=== PATIENT | female | born 1960 | race Caucasian/White ===

== ENCOUNTER → 2024-05-14 14:06 | Outpatient (REF) | payer BC, MEDICARE, SELFPAY | LOC: HWRCS 14:06 | PROVIDERS: ATTENDING PHYSICIAN Internal Medicine Cardiovascular Disease; FAMILY PHYSICIAN Family Medicine | DX: I48.3 Typical atrial flutter (principal) | CPT/HCPCS: 93306 ==

== ENCOUNTER → 2024-09-16 14:16 | Outpatient (REF) | payer BC, SELFPAY | LOC: RCS 14:16 | PROVIDERS: ATTENDING PHYSICIAN Internal Medicine Cardiovascular Disease; FAMILY PHYSICIAN Family Medicine | DX: I27.20 Pulmonary hypertension, unspecified (principal) | CPT/HCPCS: 93306; 93356 ==

== ENCOUNTER 2024-10-09 07:21 | Day surgery (SDC) | payer BC, SELFPAY ==
[2024-10-09] VITALS (10 sets, daily range): BP systolic 100–162; BP diastolic 60–82; BMI 35.6
[2024-10-09 08:12] LABS: Hematocrit 42.8 % (37.0-47.0); Hemoglobin 14.5 g/dL (12.0-16.0); Mean Corp Hgb Conc. 33.9 g/dL (33.0-37.0); Mean Corpuscular Hgb 30.1 pg (27.0-31.0); Mean Platelet Volume 10.5 fL (7.4-10.4); Platelet Count 187 10^3/uL (130-400); Red Blood Cell Count 4.81 10^6/uL (4.20-5.40); Red Cell Dist. Width 13.5 % (11.5-14.5); White Blood Cell Count 6.5 10^3/uL (4.8-10.8)
[2024-10-09 08:49] LABS: Blood Urea Nitrogen 16 mg/dl (7-17); Calcium 9.3 mg/dl (8.4-10.2); Carbon Dioxide 25 mmol/L (22-30); Chloride 108 mmol/L (98-107); Estimated Creatinine Clearance 110 ml/min; Glucose 109 mg/dl (70-99); Potassium 3.9 mmol/L (3.5-5.1); Sodium 142 mmol/L (135-145); eGFR > 60.00
--- NOTE | 2024-10-09 11:43 | ITS.CL.CATH ---
Addendum entered and electronically signed by Ricardo Jacinto MD 10/09/24 14:44:
Director Of Logistics - Catheterization
Cardiac Catheterization
Procedure Report:
RIGHT HEART CATHETERIZATION
Date of Procedure: October 09, 2024
Referring: Dr. Alli Holt
INDICATION: Scleroderma
Hemodynamics (mmHg):
RA (m) : 14
RV (s/d,m) : 08/05, 16
PA (s/d, m) : /, 38
PCWP (m) : 20
Ao: 143/69, 99
Cardiac Output : 3.8 L/min
Cardiac Index : 1.8 L/min/m-2
Systemic vascular resistance: 22.4 Wood units or 1790 [id number]-cs(-5)
Pulmonary vascular resistance: 4.7 Wood units or 379 sdkzh-[id number]-pi(-5)
SEDATION: 55 minutes of procedural sedation was utilized. An independent medical photographer was present to assist with and help manage the patient's level of consciousness and physiologic status
RADIATION SUMMARY: Fluoro Time (min): 0.7, Dose (mGy): 20.1, DAP (Gy.cm2) : 2.5
CONCLUSION:
1. Combined pre and postcapillary pulmonary hypertension with a mean PA pressure of 38 mmHg, pulmonary capillary wedge pressure of 20 mmHg, and PVR of 4.7 Wood units.
Copy to: Dr. Alli Holt
Original Note:
Director Of Logistics - Catheterization
Cardiac Catheterization
Procedure Report:
RIGHT HEART CATHETERIZATION
Date of Procedure: October 09, 2024
Referring: Dr. Alli Holt
INDICATION: Scleroderma
Hemodynamics (mmHg):
RA (m) : 14
RV (s/d,m) : 08/05, 16
PA (s/d, m) : 56/29, 38
PCWP (m) : 20
Ao: 143/69, 99
Cardiac Output : 3.8 L/min
Cardiac Index : 1.8 L/min/m-2
Systemic vascular resistance: 22.4 Wood units or 1790 vwgir-lbc-cz(-5)
Pulmonary vascular resistance: 4.7 Wood units or 379 bzrjv-[id number]-yi(-5)
SEDATION: [ ] minutes of procedural sedation was utilized. An independent medical photographer was present to assist with and help manage the patient's level of consciousness and physiologic status
RADIATION SUMMARY: Fluoro Time (min): [ ], Dose (mGy): [ ], DAP (Gy.cm2) : [ ]
CONCLUSION:
[ ]
Copy to: [ ]
== END 2024-10-09 14:00 | disposition home or self-care (01) ==
LOC: CATH 07:21
PROVIDERS: ATTENDING PHYSICIAN Internal Medicine Interventional Cardiology; FAMILY PHYSICIAN Family Medicine; OTHER PHYSICIAN Internal Medicine Cardiovascular Disease
DX: M34.9 Systemic sclerosis, unspecified (principal); I27.20 Pulmonary hypertension, unspecified; I48.92 Unspecified atrial flutter; I10 Essential (primary) hypertension; G47.33 Obstructive sleep apnea (adult) (pediatric); Z85.42 Personal history of malignant neoplasm of other parts of uterus; Z79.01 Long term (current) use of anticoagulants
CPT/HCPCS: 99152; 99153; C1894; 80048; 85027; 93451

== ENCOUNTER → 2024-12-23 07:36 | Outpatient (REF) | payer MEDICARE, OTHER, SELFPAY | LOC: RCS 07:36 | PROVIDERS: ATTENDING PHYSICIAN Internal Medicine Cardiovascular Disease; FAMILY PHYSICIAN Family Medicine | DX: I48.3 Typical atrial flutter (principal); I27.20 Pulmonary hypertension, unspecified | CPT/HCPCS: 93306 ==

== ENCOUNTER → 2025-02-01 13:36 | Outpatient (REF) | payer MEDICARE, OTHER, SELFPAY | LOC: RCS 13:36 | PROVIDERS: ATTENDING PHYSICIAN Internal Medicine Cardiovascular Disease; FAMILY PHYSICIAN Family Medicine | DX: I27.20 Pulmonary hypertension, unspecified (principal) | CPT/HCPCS: 93308; 93321; 93325 ==

== ENCOUNTER → 2025-02-04 08:44 | Outpatient (REF) | payer MEDICARE, OTHER, SELFPAY | LOC: RSP 08:44 | PROVIDERS: ATTENDING PHYSICIAN Internal Medicine Cardiovascular Disease; FAMILY PHYSICIAN Family Medicine | DX: I27.20 Pulmonary hypertension, unspecified (principal); R06.09 Other forms of dyspnea | CPT/HCPCS: 88738; 94010; 94727; 94729 ==

== ENCOUNTER → 2025-02-08 13:09 | Outpatient (REF) | payer MEDICARE, OTHER, SELFPAY | LOC: RAD 13:09 | PROVIDERS: ATTENDING PHYSICIAN Internal Medicine Cardiovascular Disease; FAMILY PHYSICIAN Family Medicine | DX: I27.20 Pulmonary hypertension, unspecified (principal) | CPT/HCPCS: 71046; 78582; A9540; A9567 ==

== ENCOUNTER 2025-02-17 11:11 | Day surgery (SDC) | payer MEDICARE, OTHER, SELFPAY ==
[2025-02-17] VITALS (9 sets, daily range): BP systolic 83–141; BP diastolic 47–70; BMI 35.5
[2025-02-17 12:31] LABS: Hematocrit 40.4 % (37.0-47.0); Hemoglobin 13.6 g/dL (12.0-16.0); Mean Corp Hgb Conc. 33.7 g/dL (33.0-37.0); Mean Corpuscular Volume 87.3 fL (81.0-99.0); Platelet Count 181 10^3/uL (130-400); Red Cell Dist. Width 13.3 % (11.5-14.5)
--- NOTE | 2025-02-17 14:23 | ITS.CL.CATH ---
Vet Assistant - Catheterization
Cardiac Catheterization
Procedure Report:
RIGHT HEART CATHETERIZATION
Date of Procedure: February 17, 2025
Referring: Ingrid Singh PA-C
INDICATION: Assess invasive hemodynamics.
Hemodynamics (mmHg):
RA (m) : 12
RV (s/d,m) : 59/13; 16
PA (s/d, m) : 58/23; 34
PCWP (m) : 16
PA saturation: 70.8% on room air
AO saturation: 97% on room air
RA saturation: 69.8% on room air
Cardiac Output : 5.63 L/min
Cardiac Index : 2.73 L/min/m-2
Systemic vascular resistance: 1009 dsc^(-5)
Pulmonary vascular resistance: 3.38 vieira unit
RADIATION SUMMARY: Fluoro Time (min): 1.1, Dose (mGy): 5.26, DAP (Gy.cm2) : 0.79
CONCLUSION:
1. Combined pre and postcapillary pulmonary hypertension with a mean PA pressure of 34mmHg, pulmonary capillary wedge pressure of 16 mmHg, and PVR of 3.38 Wood units.
Copy to: Vonnie Alas MD and Ingrid Singh PA-C
Leah Boone MD, [facility], [facility]
== END 2025-02-17 15:25 | disposition home or self-care (01) ==
LOC: CATH 11:11
PROVIDERS: ATTENDING PHYSICIAN Internal Medicine Interventional Cardiology; FAMILY PHYSICIAN Family Medicine; OTHER PHYSICIAN Internal Medicine Cardiovascular Disease
DX: I27.20 Pulmonary hypertension, unspecified (principal); I10 Essential (primary) hypertension; I50.30 Unspecified diastolic (congestive) heart failure; I11.0 Hypertensive heart disease with heart failure; G47.33 Obstructive sleep apnea (adult) (pediatric)
CPT/HCPCS: 85027; 93005; 93451; C1769; C1894